=== PATIENT | male | born 1960 | race Caucasian/White ===

== ENCOUNTER 2024-11-02 08:57 | Inpatient (IN) | payer MEDICARE ==
[2024-11-02] MEDS: Nystatin Topical Powder 15 GM Bottle TOP SCH (20:26)
[2024-11-02] MEDS: Sennosides/Docusate Sodium 50-8.6 MG Tab PO SCH (20:28)
[2024-11-03] MEDS: Cholecalciferol (Vitamin D3) 25 MCG Tab PO SCH (07:52)
[2024-11-03] MEDS ORDERED: Non-Formulary Medication 1 Each (Allopurinol [Zyloprim] 300 MG Tablet) PO SCH (08:00)
[2024-11-03 08:40] LABS: INR 2.8
[2024-11-03] MEDS ORDERED: Pharmacy Consult Order SCH (10:00)
[2024-11-04 07:40] LABS: INR 2.5
[2024-11-04] MEDS ORDERED: Sodium Chloride 0.9% 10 ML Syringe FLUSH PRN (13:49)
[2024-11-05 08:24] LABS: INR 2.2
[2024-11-05] MEDS: Sodium Chloride 0.9% 10 ML Syringe FLUSH SCH ×2 (08:28→08:33)
[2024-11-05] MEDS: Warfarin** 1 MG TABLET PO ONE (18:17)
[2024-11-08 07:33] LABS: BASOPHILS ABSOLUTE AUTO 0.02 K/uL (0.00-0.20); BASOPHILS PERCENT AUTO 0.2 % (0.0-2.0); EOSINOPHILS ABSOLUTE AUTO 0.46 K/uL (0.00-0.50); EOSINOPHILS PERCENT AUTO 5.1 % (0.0-5.0); IMMATURE GRAN ABSOLUTE AUTO 0.02 10^3/uL (0.00-0.04); IMMATURE GRAN PERCENT AUTO 0.2 % (0.0-0.4); LYMPHOCYTES ABSOLUTE AUTO 1.38 K/uL (0.50-3.50); LYMPHOCYTES PERCENT AUTO 15.3 % (10.0-50.0); MONOCYTES ABSOLUTE AUTO 0.82 K/uL (0.00-1.00); MONOCYTES PERCENT AUTO 9.1 % (2.0-14.0); NEUTROPHILS ABSOLUTE AUTO 6.31 K/uL (1.40-7.00); NEUTROPHILS PERCENT AUTO 70.1 % (45.0-80.0); PLATELET COUNT,PLT 276 K/uL (150-350); RED BLOOD CELL COUNT 4.55 M/uL (4.33-5.41); RED CELL DISTRIBUTION WIDTH 18.2 % (11.2-14.1); WHITE BLOOD CELL COUNT,WBC 9.0 K/uL (4.0-10.2)
[2024-11-08 08:22] LABS: ALANINE AMINOTRANSFERASE,ALT 15.0 U/L (12-78); ASPARTATE AMNIOTRANSFERASE,AST 17.0 U/L (15-37); BILIRUBIN TOTAL 0.4 mg/dL (0.2-1.0); BLOOD UREA NITROGEN,BUN 18.0 mg/dL (7-18); CARBON DIOXIDE,CO2 28.1 mmol/L (21.0-32.0); CHLORIDE,CL 100.0 mmol/L (98-107); CREATINE KINASE,CK 422.0 U/L (26-308); CREATININE 0.91 mg/dL (0.51-1.17); EST CRCL DRUG DOSING (CG) 88.83 mL/min; GLUCOSE RANDOM 105.0 mg/dL (70-99); POTASSIUM,K 4.0 mmol/L (3.5-5.1); PROTEIN TOTAL,TP 7.5 g/dL (6.4-8.2); SODIUM,NA 136.0 mmol/L (136-145)
[2024-11-08 08:25] LABS: ESTIMATED GFR 94.0 mL/min (>=60)
[2024-11-08 09:45] LABS: INR 2.0 (0.9-1.1)
[2024-11-09] MEDS: Zinc (Zinc Gluconate) 50 MG Tab PO SCH (08:07)
[2024-11-09 08:41] LABS: INR 2.0
[2024-11-10 07:44] LABS: INR 2.1
[2024-11-10] MEDS ORDERED: Nystatin Topical Powder 15 GM Bottle TOP PRN (10:54)
[2024-11-12 08:36] LABS: INR 1.8
[2024-11-14] MEDS: Lactobacillus Rhamnosus GG (Probiotic) Cap PO SCH (17:30)
[2024-11-15 07:39] LABS: BASOPHILS ABSOLUTE AUTO 0.03 K/uL (0.00-0.20); BASOPHILS PERCENT AUTO 0.4 % (0.0-2.0); EOSINOPHILS ABSOLUTE AUTO 0.80 K/uL (0.00-0.50); EOSINOPHILS PERCENT AUTO 10.0 % (0.0-5.0); IMMATURE GRAN ABSOLUTE AUTO 0.02 10^3/uL (0.00-0.04); IMMATURE GRAN PERCENT AUTO 0.3 % (0.0-0.4); LYMPHOCYTES ABSOLUTE AUTO 1.00 K/uL (0.50-3.50); LYMPHOCYTES PERCENT AUTO 12.5 % (10.0-50.0); MONOCYTES ABSOLUTE AUTO 0.77 K/uL (0.00-1.00); MONOCYTES PERCENT AUTO 9.7 % (2.0-14.0); NEUTROPHILS ABSOLUTE AUTO 5.35 K/uL (1.40-7.00); NEUTROPHILS PERCENT AUTO 67.1 % (45.0-80.0); PLATELET COUNT,PLT 286 K/uL (150-350); RED BLOOD CELL COUNT 4.63 M/uL (4.33-5.41); RED CELL DISTRIBUTION WIDTH 18.4 % (11.2-14.1); WHITE BLOOD CELL COUNT,WBC 8.0 K/uL (4.0-10.2)
[2024-11-15 08:24] LABS: ALANINE AMINOTRANSFERASE,ALT 13.0 U/L (12-78); ASPARTATE AMNIOTRANSFERASE,AST 20.0 U/L (15-37); BILIRUBIN TOTAL 0.4 mg/dL (0.2-1.0); BLOOD UREA NITROGEN,BUN 18.0 mg/dL (7-18); CARBON DIOXIDE,CO2 29.6 mmol/L (21.0-32.0); CHLORIDE,CL 100.0 mmol/L (98-107); CREATINE KINASE,CK 650.0 U/L (26-308); CREATININE 0.92 mg/dL (0.51-1.17); EST CRCL DRUG DOSING (CG) 87.86 mL/min; GLUCOSE RANDOM 119.0 mg/dL (70-99); POTASSIUM,K 4.2 mmol/L (3.5-5.1); PROTEIN TOTAL,TP 7.4 g/dL (6.4-8.2); SODIUM,NA 137.0 mmol/L (136-145)
[2024-11-15 08:35] LABS: ESTIMATED GFR 92.0 mL/min (>=60)
[2024-11-15 09:27] LABS: INR 1.9 (0.9-1.1)
[2024-11-15] MEDS: WARFARIN PO SCH (17:41)
[2024-11-19 08:02] LABS: INR 1.5 (0.9-1.1)
[2024-11-19] MEDS: Warfarin** 1 MG TABLET PO SCH (17:38)
[2024-11-21 08:37] LABS: INR 1.8 (0.9-1.1)
[2024-11-21] MEDS: WARFARIN PO SCH (18:03)
[2024-11-22 08:15] LABS: ALANINE AMINOTRANSFERASE,ALT 18.0 U/L (12-78); ASPARTATE AMNIOTRANSFERASE,AST 19.0 U/L (15-37); BILIRUBIN TOTAL 0.3 mg/dL (0.2-1.0); BLOOD UREA NITROGEN,BUN 17.0 mg/dL (7-18); CARBON DIOXIDE,CO2 24.3 mmol/L (21.0-32.0); CHLORIDE,CL 100.0 mmol/L (98-107); CREATINE KINASE,CK 399.0 U/L (26-308); CREATININE 0.8 mg/dL (0.51-1.17); EST CRCL DRUG DOSING (CG) 101.04 mL/min; GLUCOSE RANDOM 116.0 mg/dL (70-99); POTASSIUM,K 4.2 mmol/L (3.5-5.1); PROTEIN TOTAL,TP 7.4 g/dL (6.4-8.2); SODIUM,NA 136.0 mmol/L (136-145)
[2024-11-22 08:16] LABS: ESTIMATED GFR 98.0 mL/min (>=60)
[2024-11-22 08:33] LABS: BASOPHILS ABSOLUTE AUTO 0.05 K/uL (0.00-0.20); BASOPHILS PERCENT AUTO 0.5 % (0.0-2.0); EOSINOPHILS ABSOLUTE AUTO 0.83 K/uL (0.00-0.50); EOSINOPHILS PERCENT AUTO 8.7 % (0.0-5.0); IMMATURE GRAN ABSOLUTE AUTO 0.03 10^3/uL (0.00-0.04); IMMATURE GRAN PERCENT AUTO 0.3 % (0.0-0.4); LYMPHOCYTES ABSOLUTE AUTO 0.98 K/uL (0.50-3.50); LYMPHOCYTES PERCENT AUTO 10.3 % (10.0-50.0); MONOCYTES ABSOLUTE AUTO 1.07 K/uL (0.00-1.00); MONOCYTES PERCENT AUTO 11.3 % (2.0-14.0); NEUTROPHILS ABSOLUTE AUTO 6.53 K/uL (1.40-7.00); NEUTROPHILS PERCENT AUTO 68.9 % (45.0-80.0); PLATELET COUNT,PLT 255 K/uL (150-350); RED BLOOD CELL COUNT 4.52 M/uL (4.33-5.41); RED CELL DISTRIBUTION WIDTH 17.7 % (11.2-14.1); WHITE BLOOD CELL COUNT,WBC 9.5 K/uL (4.0-10.2)
[2024-11-22 08:52] LABS: INR 2.1
[2024-11-23 07:31] LABS: INR 2.1
[2024-11-26 07:50] LABS: INR 1.7
[2024-11-26] MEDS: Sodium Chloride 0.9% 10 ML Syringe FLUSH ONE ×2 (10:17→10:23)
== END 2024-11-26 13:35 | disposition home or self-care (01) | DRG 638 ==
LOC: LL.MS 11:40
PROVIDERS: ADMIT Emergency Medicine; ATTEND Student in an Organized Health Care Education/Training Program
DX: E11.69 Type 2 diabetes mellitus with other specified complication (principal); D69.3 Immune thrombocytopenic purpura; M86.8X6 Other osteomyelitis, lower leg; I48.11 Longstanding persistent atrial fibrillation; Z66 Do not resuscitate; E78.00 Pure hypercholesterolemia, unspecified; I10 Essential (primary) hypertension; M10.9 Gout, unspecified; E11.9 Type 2 diabetes mellitus without complications; E66.9 Obesity, unspecified; G47.33 Obstructive sleep apnea (adult) (pediatric); K59.00 Constipation, unspecified; E11.628 Type 2 diabetes mellitus with other skin complications; Z97.8 Presence of other specified devices; Z88.0 Allergy status to penicillin; Z79.899 Other long term (current) drug therapy; Z79.01 Long term (current) use of anticoagulants; Z79.84 Long term (current) use of oral hypoglycemic drugs; Z68.36 Body mass index [BMI] 36.0-36.9, adult; Z98.890 Other specified postprocedural states
CPT/HCPCS: 36415; 36416; 71045; 80053; 82550; 85025; 85610; 97110-GO; 97129-GO; 97161-GP; 97165-GO; 97530-GO; 97535-GO; 99306; 99307; 99316; A9270-GY; J0878; J1650; J2997